=== PATIENT | male | born 1955 | race Caucasian/White ===

== ENCOUNTER 2017-10-22 20:07 | Emergency (ER) | payer MEDICARE, OTHER ==
[2017-10-22 21:23] LABS: #Eosinphils 0.2 thou/uL (0.0-0.7); #Lymphocytes 1.1 thou/uL (1.20-3.40); #Monocytes 0.8 thou/uL (0.11-0.59); #Neutrophils 7.4 thou/uL (1.40-6.50); %Basophils 0.4 % (0.0-1.0); %Eosinophils 1.9 % (0.0-10.0); %Lymphocytes 11.6 % (21.0-51.0); Hematocrit 33.2 % (42.0-52.0); Mean Platelet Volume 7.5 fL (7.4-10.4); Red Blood Cell (RBC) Count 3.33 mill/uL (4.70-6.10); White Blood Cell (WBC) Count 9.5 thou/uL (4.8-10.8)
--- NOTE | 2017-10-22 21:36 | RAD ---
CHEST ONE VIEW: History: Chest pain. Comparison: 01-24-17 FINDINGS: Cardiac silhouette is magnified and enlarged. Pulmonary vasculature is slightly engorged. Mediastinum is midline. There is no lobar consolidation or evidence of pneumothorax. IMPRESSION: Cardiomegaly with mild pulmonary vascular congestion. POS: [facility]
[2017-10-22 21:43] LABS: ALT (SGPT) 13 U/L (8-55); AST (SGOT) 20 U/L (5-34); Alkaline Phosphatase 110 U/L (40-150); Anion Gap 20 mmol/L (10-20); BUN (Urea Nitrogen) 85 mg/dL (8.4-25.7); Bilirubin, Total 0.5 mg/dL (0.2-1.2); Calc. Creatinine Clearance 0 mL/min (70-130); Calcium 9.4 mg/dL (7.8-10.44); Carbon Dioxide 21 mmol/L (23-31); Chloride 100 mmol/L (98-107); Estimated GFR-MDRD 6; Globulin 3.8 g/dL (2.4-3.5); Protein, Total 7.7 g/dL (5.8-8.1)
[2017-10-22 21:47] LABS: Troponin I 0.038 ng/mL (< 0.028)
[2017-10-22] MEDS ORDERED: Acetaminophen 500 MG TAB ONE (22:28)
== END 2017-10-22 23:31 | disposition home or self-care (01) ==
LOC: ERS 20:24
DX: E11.649 Type 2 diabetes mellitus with hypoglycemia without coma (principal); N40.0 Benign prostatic hyperplasia without lower urinary tract symptoms; I48.91 Unspecified atrial fibrillation; G83.9 Paralytic syndrome, unspecified; F41.9 Anxiety disorder, unspecified; Z99.2 Dependence on renal dialysis
CPT/HCPCS: 36416; 71010; 80053; 82553; 84484; 85025; 93005

== ENCOUNTER 2017-10-26 05:12 | Observation (INO) | payer MEDICARE ==
[2017-10-26 06:04] LABS: #Eosinphils 0.6 thou/uL (0.0-0.7); #Lymphocytes 1.6 thou/uL (1.20-3.40); #Monocytes 0.8 thou/uL (0.11-0.59); #Neutrophils 7.8 thou/uL (1.40-6.50); %Basophils 0.4 % (0.0-1.0); %Eosinophils 5.5 % (0.0-10.0); %Monocytes 7.2 % (0.0-10.0); Hematocrit 28.5 % (42.0-52.0); Mean Platelet Volume 7.2 fL (7.4-10.4); Red Blood Cell (RBC) Count 2.87 mill/uL (4.70-6.10); White Blood Cell (WBC) Count 10.9 thou/uL (4.8-10.8)
[2017-10-26 06:17] LABS: ALT (SGPT) 13 U/L (8-55); AST (SGOT) 19 U/L (5-34); Alkaline Phosphatase 105 U/L (40-150); Anion Gap 21 mmol/L (10-20); BUN (Urea Nitrogen) 119 mg/dL (8.4-25.7); Bilirubin, Total 0.4 mg/dL (0.2-1.2); Calc. Creatinine Clearance 0 mL/min (70-130); Calcium 9.6 mg/dL (7.8-10.44); Carbon Dioxide 21 mmol/L (23-31); Chloride 103 mmol/L (98-107); Estimated GFR-MDRD 5; Globulin 4.1 g/dL (2.4-3.5); Magnesium 3.8 mg/dL (1.6-2.6); Phosphorus 7.8 mg/dL (2.3-4.7); Protein, Total 7.9 g/dL (5.8-8.1)
[2017-10-26 08:29] VITALS: BMI 30.7
[2017-10-26] MEDS ORDERED: Dextrose 5% in Water 1,000 ML IV PRN (08:47)
[2017-10-26] MEDS ORDERED: Acetaminophen 325 MG TAB PO PRN (08:47)
[2017-10-26] MEDS ORDERED: PROVENTIL INHALER 6.7 G (200 INHALATIONS) INH PRN (08:47)
[2017-10-26] MEDS ORDERED: Acetaminophen/Codeine 30-300mg Tablet PO PRN (08:47)
[2017-10-26] MEDS ORDERED: Ondansetron ODT 4 MG TAB PO PRN (08:47)
[2017-10-26] MEDS ORDERED: Zolpidem Tartrate 5 MG TAB PO PRN (08:47)
[2017-10-26] MEDS ORDERED: Dextrose 50% Abboject 50 ML SYRINGE SLOW IVP PRN (08:47)
--- NOTE | 2017-10-26 08:47 | RAD ---
RIGHT KNEE: Two views HISTORY: Fall with injury to right knee. FINDINGS: Degenerative changes of the right knee. Prominent arterial calcification. No acute fracture identif ied. No evidence of joint effusion. IMPRESSION: No acute osseous abnormality identified. POS: [facility]
[2017-10-26] MEDS ORDERED: Insulin Detemir 100 UNITS/ML 14 UNITS in Pre-Filled Syringe 1 EACH SC SCH (09:00)
[2017-10-26] MEDS ORDERED: Amlodipine 5 MG TAB PO SCH (09:00)
[2017-10-26] MEDS ORDERED: Gabapentin 300 MG CAP PO SCH (09:00)
--- NOTE | 2017-10-26 09:03 | RAD ---
RIGHT HIP: Two views HISTORY: Fall with injury to right hip. FINDINGS: Degenerative changes of the right hip noted. No acute fracture identified. IMPRESSION: No evidence of acute fracture. POS: [facility]
--- NOTE | 2017-10-26 09:33 | HP ---
PRIMARY CARE PROVIDER: [facility] call admission. HISTORY OF PRESENT ILLNESS: The patient is from [place], seen in [facility] Emergency Department, referred for admission. The patient fell and hurt his right hip. He was seen and evaluated in the emergency room. The patient is an end-stage renal disease patient. His last dialysis was 2 weeks ag o. He states he is here from [place], been unable to get a dialysis chair. He has developed shortn ess of breath, orthopnea. He denies any chest pain. He does have itching all over and he states he feels like he is going to pull his skin off. He has had no nausea or vomiting or GI complaints. In evaluation, he was found to have pulmonary vascular congestion and markedly elevated BUN and creatini ne. He is being put in the hospital on observation basis for hemodialysis. PAST MEDICAL HISTORY: Pertinent for end-stage renal disease requiring hemodialysis, cardiomyopathy, EF 35-40%, COPD, hypothyroidism, diabetic neuropathy, diabetes mellitus type 2, noncompliance. PAST SURGICAL HISTORY: Bilateral eye surgery, inguinal hernia repair, left knee and left foot surger y. ALLERGIES: HYDROMORPHONE, FLU VACCINE, MORPHINE, DARVON, HEPARIN. SOCIAL HISTORY: He says he is to his caregiver, denies alcohol, tobacco or illicit drugs. CODE STATUS: Full code. next of kin. FAMILY HISTORY: Significant for diabetes, hypertension, heart disease. There is no end-stage renal disease in the family. REVIEW OF SYSTEMS: GENERAL: He has occasional headaches, occasional dizziness, no fainting. EYES: He states he has scant vision in the right eye, has none on the left. ENT: No ear pain or drainage. He has had some nosebleed in the past scan, but none recently no oral pain or bleeding. CARDIAC: No chest pain. Positive for orthopnea, no paroxysmal nocturnal dyspnea. RESPIRATORY: Dyspnea on exertion and occasional wheezing and occasional dry cough. GASTROINTESTINAL: No nausea, vomiting, diarrhea, constipation or melena. GENITOURINARY: He makes little urine. No hematuria, dysuria. MUSCULOSKELETAL: No pain or swelling in his legs. NEUROLOGICAL: No history of strokes, seizures or focal weakness. PSYCHIATRIC: No history of anxiety or depression at the current time. HEME/LYMPH: No tender or swollen lymph nodes in his groin, axilla or cervical area. CURRENT MEDICATIONS: We are currently trying to ascertain. He has several boxes fentanyl patches, a re being attempted to be found at the present time. PHYSICAL EXAMINATION: GENERAL: The patient is alert, oriented, blind. VITAL SIGNS: Blood pressure 183/92, pulse 85, respirations 20, O2 sat 87. HEENT: Revealed a minimally reactive pupil on the right. Extraocular movements grossly intact. Scl erae white. Tympanic membranes clear. Nose clear. Oral mucous membranes are wet. Dental hygiene a dequate. NECK: No jugular venous distention, adenopathy or thyromegaly. CHEST: Clear to percussion. Decreased breath sounds and some basilar rales, nonfocal otherwise. HEART: Regular rate and rhythm. First and second heart sounds are clear. No murmurs, no gallops. ABDOMEN: Soft, bowel sounds are normal. No hepatosplenomegaly, no mass, no rebound. EXTREMITIES: Reveal no cyanosis, clubbing or edema. PULSES: Carotid, radial, and femoral pulses intact. Pedal pulses are markedly diminished. SKIN: Reveals excoriations of his arms and trunk. No hematomas. HEME/LYMPH: No tender or swollen lymph nodes in axilla, inguinal or cervical area. NEUROLOGIC: Ess entially blind, facies symmetric. Moves all extremities. Deep tendon reflexes absent. X-ray of his right hip reveals no fracture. EKG: Regular sinus rhythm, left axis deviation, intraventricular conduction defect reviewed by me. Chest x-ray: Pulmonary vascular congestion, left pleural effusion, reviewed by me. LABORATORY: White count 10.9, hemoglobin 9.3, platelet count 239,000. Creatinine 10.9, BUN 119, CO2 21, sodium 140, potassium 4.7. ADMITTING DIAGNOSES: 1. End-stage renal disease requiring hemodialysis with uremic syndrome. 2. Diabetes mellitus type 2, insulin-dependent. 3. Cardiomyopathy 30-35% ejection fraction. 4. Hypertension. 5. Chronic obstructive pulmonary disease. PLAN: Emergent hemodialysis, then likely discharge home on home medicines.
--- NOTE | 2017-10-26 09:34 | RAD ---
PORTABLE CHEST: HISTORY: Abdominal pain. COMPARISON: 10/22/17. Mild cardiomegaly is stable. Lungs appear clear of focal infiltrate. Vascular markings upper normal and stable. IMPRESSION: No acute interval change. POS: [facility]
[2017-10-26] MEDS: Metoclopramide HCl 10 MG TAB PO SCH ×2 (09:37→15:07)
[2017-10-26] MEDS ORDERED: Sevelamer Carbonate 800 MG TAB PO SCH (12:00)
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
[2017-10-26] MEDS ORDERED: diphenhydrAMINE 25 MG CAP PO PRN (13:44)
[2017-10-26 14:52] VITALS: BP 174/74; TEMP 97.2
--- NOTE | 2017-10-26 16:16 | DIS ---
DATE OF ADMISSION: 10/26/2017 DATE OF DISCHARGE: 10/26/2017 PRIMARY CARE PROVIDER: Martin pozo. Lives in [place]. DISCHARGE DISPOSITION: Discharged home. CONSULTATION: Dr. Melvin Rodriguez, Nephrology. PROCEDURES: Hemodialysis. FINAL DIAGNOSES: Uremic syndrome, end-stage renal disease on hemodialysis, diabetes mellitus type 2 insulin-dependent, hypertension, cardiomyopathy and chronic obstructive pulmonary disease. DISCHARGE MEDICATIONS: The same as his home medicines, midodrine 5 mg twice a day, levothyroxine 75 mcg a day, amitriptyline 12.5 mg at bedtime, metoprolol 25 mg a day, aspirin 81 mg a day, BuSpar 5 mg t.i.d. and Amitiza 24 mcg p.o. b.i.d., Lasix 40 mg p.o. b.i.d., insulin detemir 14 units subcu twice a day, Xanax 0.25 mg t.i.d. p.r.n., ProAir HFA 2 puffs every 4 hours p.r.n., Imdur 60 mg a day, mina pentin 300 mg p.o. twice a day, amlodipine 5 mg a day, omeprazole 20 mg a day, metoclopramide 5 mg p. o. q.i.d., Flomax 0.4 mg p.o. daily, tramadol 50 mg p.o. daily. He also has a fentanyl patch. CODE STATUS: FULL. PENDING AT THE TIME OF DISCHARGE: Nothing. ALLERGIES: To HYDROMORPHONE, INFLUENZA VACCINES, MORPHINE, DARVON, which is no longer made and HEPAR IN. HOSPITAL COURSE: The patient is here for , has not had dialysis in 2 weeks. He presented wit h shortness of breath, found to have pulmonary vascular congestion with uremic syndrome, diabetes rosalva litus type 2, cardiomyopathy 30%-35% ejection fraction, hypertension. He underwent dialysis. His la boratory revealed a white count of 10.9, hemoglobin 9.3, platelet count 239,000. His creatinine was markedly elevated at 10.9, BUN 119, chloride remarkably only 21, weaned carbon dioxide only 21, potas sium remarkably 4.7. He is postdialysis. His vital signs were stable. His chest is clear. He is d esirous of going home. He is being discharged to followup as an outpatient with Dr. Rodriguez.
[2017-10-26] MEDS ORDERED: Beclomethasone 80 mcg 120 PUFF/8.7 GM AER INH SCH (18:30)
[2017-10-27] MEDS ORDERED: Levothyroxine Sodium 50 MCG TAB PO SCH (06:00)
== END 2017-10-26 15:49 | disposition home or self-care (01) ==
LOC: ERS 05:12 → 2SW 06:34
PROVIDERS: ADMIT Internal Medicine Infectious Disease; ATTEND Internal Medicine Infectious Disease
DX: E11.22 Type 2 diabetes mellitus with diabetic chronic kidney disease (principal); I13.2 Hypertensive heart and chronic kidney disease with heart failure and with stage 5 chronic kidney disease, or end stage renal disease; I50.9 Heart failure, unspecified; N18.6 End stage renal disease; I42.9 Cardiomyopathy, unspecified; J44.9 Chronic obstructive pulmonary disease, unspecified; E11.21 Type 2 diabetes mellitus with diabetic nephropathy; E11.43 Type 2 diabetes mellitus with diabetic autonomic (poly)neuropathy; K31.84 Gastroparesis; E11.319 Type 2 diabetes mellitus with unspecified diabetic retinopathy without macular edema; E11.51 Type 2 diabetes mellitus with diabetic peripheral angiopathy without gangrene; F41.9 Anxiety disorder, unspecified; E83.39 Other disorders of phosphorus metabolism; R09.89 Other specified symptoms and signs involving the circulatory and respiratory systems; E03.9 Hypothyroidism, unspecified; Z91.19 Patient's noncompliance with other medical treatment and regimen; Z79.82 Long term (current) use of aspirin; Z79.4 Long term (current) use of insulin; Z79.51 Long term (current) use of inhaled steroids; Z79.52 Long term (current) use of systemic steroids; Z79.899 Other long term (current) drug therapy; Z99.2 Dependence on renal dialysis; Z88.5 Allergy status to narcotic agent; Z88.7 Allergy status to serum and vaccine; Z88.8 Allergy status to other drugs, medicaments and biological substances; Z98.890 Other specified postprocedural states
CPT/HCPCS: 36415; 36416; 71010; 80053; 83735; 84100; 85025; 87340; 93005; J1815